=== PATIENT | female | born 1935 | race Caucasian/White ===

== ENCOUNTER 2018-01-24 21:49 | Emergency (ER) | payer MEDICARE, OTHER ==
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
[2018-01-24] MEDS ORDERED: Aspirin 325 MG Tab PO ONE (22:52)
[2018-01-24] MEDS: Aspirin 325 MG Tab PO ONE (22:58)
[2018-01-25 00:39] LABS: CHLORIDE,CL 105 mmol/L (98-107); SODIUM,NA 141 mmol/L (136-145)
[2018-01-25] MEDS ORDERED: Iopamidol 755 Mg/ML 100 ML Bottle IVPUSH STA (01:40)
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
== END 2018-01-25 02:21 | disposition home or self-care (01) ==
LOC: MW.ED 21:49
DX: S27.321A Contusion of lung, unilateral, initial encounter (principal); V89.2XXA Person injured in unspecified motor-vehicle accident, traffic, initial encounter
CPT/HCPCS: 36415; 71250; 71275; 74175; 80048; 93005; 99285; A9270; Q9967; 99284

== ENCOUNTER 2021-01-10 07:18 | Emergency (ER) | payer MEDICARE, OTHER ==
[2021-01-10] MEDS ORDERED: Sodium Chloride 0.9% 500 ML IV ONE (07:55)
[2021-01-10 08:23] LABS: BLOOD UREA NITROGEN,BUN 17 mg/dL (7.0-18.0); CARBON DIOXIDE,CO2 25.9 mmol/L (21.0-32.0); CHLORIDE,CL 105 mmol/L (98-107); GLUCOSE RANDOM 103 mg/dL (74-106); LIPASE 74 U/L (73-393); SODIUM,NA 141 mmol/L (136-145)
[2021-01-10] MEDS ORDERED: Iopamidol 755 MG/ML 500 ML Multipack Bottle IVPUSH STA (09:18)
--- NOTE | 2021-01-10 09:50 | EDM.PDOC ---
ED HPI GENERAL MEDICAL PROBLEM - General Chief Complaint: Abdominal Pain Stated Complaint: LEFT SIDE ABDOMINAL PAIN; BACK PAIN Time Seen by Provider: 01/10/21 07:34 Source of Information: Reports: Patient History Limitations: Reports: No Limitations - History of Present Illness INITIAL COMMENTS - FREE TEXT/NARRATIVE: Patient is a 85-year-old female who presents today for diffuse abdominal pain. States the pain has been present for the past few months. She has noticed the pain started after she took a fall a few months ago. She was in her garden and tried to jump on a shovel and hit her back. She has had recurrent back pain since then as well. Patient has her back pain has not changed is not bothering her much today. She says she has not had a bowel movement since December. She is still able tolerate p.o. no has no nausea or vomiting. Patient denies any other complaints. bilateral lower abdomen Pain Score (Numeric/FACES): 6 - Related Data Allergies Allergy/AdvReac Type Severity Reaction Status Date / Time No Known Allergies Allergy Verified 01/10/21 07:44 Home Meds: Home Meds . 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: Musculoskeletal History: Reports: None Neurological History: Reports: None Psychiatric History: Reports: None Endocrine/Metabolic History: Reports: None Hematologic History: Reports: None Immunologic History: Reports: None Oncologic (Cancer) History: Reports: None Dermatologic History: Reports: None - Infectious Disease History Infectious Disease History: Reports: None - Past Surgical History Head Surgeries/Procedures: Reports: None Social & Family History - Family History Family Medical History: No Pertinent Family History - Tobacco Use Tobacco Use Status *Q: Never Tobacco User Second Hand Smoke Exposure: No - Caffeine Use Caffeine Use: Reports: None - Recreational Drug Use Recreational Drug Use: No ED ROS GENERAL - Review of Systems Review Of Systems: See Below Constitutional: Reports: No Symptoms HEENT: Reports: No Symptoms Respiratory: Reports: No Symptoms Cardiovascular: Reports: No Symptoms Endocrine: Reports: No Symptoms GI/Abdominal: Reports: Abdominal Pain : Reports: No Symptoms Musculoskeletal: Reports: No Symptoms Skin: Reports: No Symptoms Neurological: Reports: No Symptoms Psychiatric: Reports: No Symptoms Hematologic/Lymphatic: Reports: No Symptoms Immunologic: Reports: No Symptoms ED EXAM, GI/ABD - Physical Exam Exam: See Below Exam Limited By: No Limitations General Appearance: Alert, WD/WN, No Apparent Distress Respiratory/Chest: No Respiratory Distress, Lungs Clear, Normal Breath Sounds Cardiovascular: Normal Peripheral Pulses, Regular Rate, Rhythm GI/Abdominal Exam: Normal Bowel Sounds, Soft, Non-Tender, Other (Guaiac negative) Back Exam: No: Paraspinal Tenderness, Vertebral Tenderness Neurological: Alert, Oriented Course - Vital Signs Last Recorded V/S: Last Vital Signs Temp 98.2 F 01/10/21 07:38 Pulse 80 01/10/21 10:12 Resp 18 01/10/21 10:12 BP 125/45 L 01/10/21 10:12 Pulse Ox 98 01/10/21 10:12 - Orders/Labs/Meds Orders: Active Orders 24 hr Category Date Time Status Guaiac [OCCULT BLOOD DIAGNOSTIC] [OP] Stat Lab 01/10/21 09:40 Ordered Labs: Laboratory Tests 01/10/21 01/10/21 01/10/21 Range/Units 07:45 07:45 08:05 WBC 4.23 (4.0-11.0) K/uL RBC 2.49 L (4.30-5.90) M/uL Hgb 8.6 L (12.0-16.0) g/dL Hct 26.2 L (36.0-46.0) % MCV 105.2 H (80.0-98.0) fL MCH 34.5 H (27.0-32.0) pg MCHC 32.8 (31.0-37.0) g/dL RDW Std Deviation 82.7 H (28.0-62.0) fl RDW Coeff of Kassandra 23 H (11.0-15.0) % Plt Count 444 H (150-400) K/uL MPV 10.70 (7.40-12.00) fL Neut % (Auto) 32.6 L (48.0-80.0) % Lymph % (Auto) 47.3 H (16.0-40.0) % Nye % (Auto) 19.4 H (0.0-15.0) % Eos % (Auto) 0.5 (0.0-7.0) % Baso % (Auto) 0.2 (0.0-1.5) % Neut # (Auto) 1.4 (1.4-5.7) K/uL Lymph # (Auto) 2.0 (0.6-2.4) K/uL Nye # (Auto) 0.8 (0.0-0.8) K/uL Eos # (Auto) 0.0 (0.0-0.7) K/uL Baso # (Auto) 0.0 (0.0-0.1) K/uL Nucleated RBC % 0.6 /100WBC Nucleated RBCs # 0 K/uL Sodium 141 (136-145) mmol/L Potassium 4.0 (3.5-5.1) mmol/L Chloride 105 (98-107) mmol/L Carbon Dioxide 25.9 (21.0-32.0) mmol/L BUN 17 (7.0-18.0) mg/dL Creatinine 0.6 (0.6-1.0) mg/dL Est Cr Clr Drug Dosing 54.22 mL/min Estimated GFR (MDRD) > 60.0 ml/min Glucose 103 (74-106) mg/dL Calcium 9.2 (8.5-10.1) mg/dL Phosphorus 3.8 (2.6-4.7) mg/dL Magnesium 2.0 (1.8-2.4) mg/dL Total Bilirubin 0.8 (0.2-1.0) mg/dL AST 17 (15-37) IU/L ALT 16 (14-63) IU/L Alkaline Phosphatase 97 (46-116) U/L Total Protein 7.1 (6.4-8.2) g/dL Albumin 4.0 (3.4-5.0) g/dL Globulin 3.1 (2.6-4.0) g/dL Albumin/Globulin Ratio 1.3 (0.9-1.6) Lipase 74 (73-393) U/L Urine Color YELLOW Urine Appearance CLEAR Urine pH 5.5 (5.0-8.0) Ur Specific Conway 1.025 (1.001-1.035) Urine Protein NEGATIVE (NEGATIVE) mg/dL Urine Glucose (UA) NEGATIVE (NEGATIVE) mg/dL Urine Ketones TRACE H (NEGATIVE) mg/dL Urine Occult Blood TRACE-INTACT H (NEGATIVE) Urine Nitrite NEGATIVE (NEGATIVE) Urine Bilirubin NEGATIVE (NEGATIVE) Urine Urobilinogen 1.0 (<2.0) EU/dL Ur Leukocyte Esterase SMALL H (NEGATIVE) Urine RBC 0-2 (0-2/HPF) Urine WBC 3-5 (0-5/HPF) Ur Epithelial Cells FEW (NONE-FEW) Urine Bacteria 1+ H (NEGATIVE) Urine Mucus LIGHT (NONE-MOD) Meds: Medications Discontinued Medications Generic Name Dose Route Start Last Admin Trade Name Iwona PRN Reason Stop Dose Admin Sodium Chloride 500 mls @ 500 mls/hr 01/10/21 07:55 01/10/21 08:03 Normal Saline IV 01/10/21 08:54 500 mls/hr .BOLUS ONE Administration Iopamidol 100 ml 01/10/21 09:18 01/10/21 09:19 Iopamidol 755 Mg/Ml 500 Ml Multipack Bottle IVPUSH 01/10/21 09:19 100 ml ONETIME STA Administration - Re-Assessments/Exams Free Text/Narrative Re-Assessment/Exam: 01/10/21 11:27 We were able to get the patient's lab from [place] and showed back in 2019 she had a hemoglobin of 11.3. Her hemoglobin today is 8.6-patient is not symptomatic we did a stool guaiac and the stool was brown and guaiac negative. Patient on exam looks well not pale not fatigue unclear if this is acute drop. We will send patient home with enema and we have informed her that if he has any does bleeding or other complaints please return to the ED immediately. Departure - Departure Time of Disposition: 11:27 Disposition: Home, Self-Care 01 Condition: Good Clinical Impression: Constipation - Discharge Information *PRESCRIPTION DRUG MONITORING PROGRAM REVIEWED*: Not Applicable *COPY OF PRESCRIPTION DRUG MONITORING REPORT IN PATIENT JOSE: Not Applicable Instructions: Constipation, Adult, [id number] Referrals: Shan Bustamante MD [Primary Care Provider] - Forms: ED Department Discharge Additional Instructions: The following information is given to patients seen in the emergency department who are being discharged to home. This information is to outline your options for follow-up care. We provide all patients seen in our emergency department with a follow-up referral. The need for follow-up, as well as the timing and circumstances, are variable depending upon the specifics of your emergency department visit. If you don't have a primary care physician on staff, we will provide you with a referral. We always advise you to contact your personal physician following an emergency department visit to inform them of the circumstance of the visit and for follow-up with them and/or the need for any referrals to a consulting specialist. The emergency department will also refer you to a specialist when appropriate. This referral assures that you have the opportunity for follow-up care with a specialist. All of these measure are taken in an effort to provide you with optimal care, which includes your follow-up. Under all circumstances we always encourage you to contact your private physician who remains a resource for coordinating your care. When calling for follow-up care, please make the office aware that this follow-up is from your recent emergency room visit. If for any reason you are refused follow-up, please contact the [facility] Emergency Department at and asked to speak to the emergency department charge nurse. Please follow up with your primary care physician. If you do not have a primary care physician, see below: [facility] [address] [place] [id number] My [facility] [address] [place] [address] You were seen today for abdominal pain which showed you have some constipation likely causing the pain. We also did imaging. Spine that shows some narrowing of your foramen but no fractures. You also had a drop in your hemoglobin that is now 8.6. You do not seem to be having any symptoms from this low hemoglobin. He did not have any blood in your stool we did the exam. We recommend you follow-up with your primary care physician to figure out why her hemoglobin is so low. If you have any other concerning signs or symptoms please return to the ED. Sepsis Event Note (ED) - Evaluation Sepsis Screening Result: No Definite Risk - Focused Exam Vital Signs: Vital Signs Temp Pulse Resp BP Pulse Ox 01/10/21 10:12 80 18 125/45 L 98 01/10/21 09:40 81 18 120/45 L 98 01/10/21 08:41 76 20 153/57 H 98 01/10/21 08:15 68 18 146/54 H 98 01/10/21 07:38 98.2 F 80 18 148/45 H 97 - My Orders Last 24 Hours: My Active Orders 01/10/21 09:40 Guaiac [OCCULT BLOOD DIAGNOSTIC] [OP] Stat - Assessment/Plan Last 24 Hours: My Active Orders 01/10/21 09:40 Guaiac [OCCULT BLOOD DIAGNOSTIC] [OP] Stat Plan: Patient is a 85-year-old female presents today for diffuse paulina pain. She has no abdominal tenderness on exam but states she has not had a bowel movement in the past month. Will obtain CT scan labs and reassess patient.
--- NOTE | 2021-01-10 10:08 | CT ---
INDICATION: Abdominal distention and low back pain. TECHNIQUE: CT abdomen and pelvis acquired with 100 cc Isovue 370 IV contrast. COMPARISON: January 25, 2018. FINDINGS: Lower chest: Unremarkable. Liver: Unremarkable. Normal in size and attenuation. No suspicious masses. Gallbladder and bile ducts: Unremarkable. No stones or inflammation. No biliary dilatation. Pancreas: Unremarkable. No mass or inflammation. Spleen: Unremarkable. Normal in size. No masses. Adrenal glands: Unremarkable. No nodules. Kidneys: Unremarkable. No suspicious masses, stones, or hydronephrosis. GI tract: There is moderate diffuse stool filled distention of the colon consistent with constipation. Unremarkable small bowel. Normal appendix. Vasculature: Aortic atherosclerosis without aneurysm. Mesenteric arteries are patent. Lymph nodes: No lymphadenopathy. Omentum/Peritoneum/Abdominal Wall: Unremarkable. No sign of mass or infiltration. No free air or significant free fluid. Pelvis: Unremarkable. Bones: Moderate multilevel degenerative spondylosis and scoliosis of the lumbar spine. IMPRESSION: 1. Constipation pattern in the colon. 2. Stable multilevel degenerative spondylosis in the lumbar spine. 3. No other acute or significant finding. Please note that all CT scans at this facility use dose modulation, iterative reconstruction, and/or weight-based dosing when appropriate to reduce radiation dose to as low as reasonably achievable. Dictated by Rickey Kirk MD @ 01/10/2021 10:06:[address] Rickey Kirk @ Jan 10 2021 10:06AM
--- NOTE | 2021-01-10 10:16 | CT ---
INDICATION: Abdominal distention. Low back pain. COMPARISON: None. TECHNIQUE: Noncontrast CT lumbar spine. FINDINGS: Mid lumbar curve convex to the right. In sagittal plane normal vertebral body alignment. No fractures. No vertebral body loss of height. No spondylolisthesis. T9-10 T10-11 T11-12: No spinal canal or neural foraminal narrowing. T12-L1: Disc generation. No narrowing of spinal canal. No neural foraminal narrowing. Mild facet arthropathy. L1-2: Disc degeneration diffuse disc bulge. Mild vacuum disc. No narrowing of spinal canal. No neural foraminal narrowing. Mild facet arthropathy. L2-3: Disc degeneration diffuse disc bulge eccentric to the left. Combined of facet arthropathy, there is mild narrowing of spinal canal. Mild narrowing of the left neural foramen. No narrowing of the right neural foramen. Mild facet arthropathy. L3-4: Disc degeneration and loss of disc height. Diffuse disc bulge eccentric to the left. Combined facet arthropathy, there is moderate narrowing of spinal canal. Mild narrowing of bilateral foramina. Mild facet arthropathy. L4-5: Disc degeneration posterior disc bulge. Combined with ligamentum flavum facet hypertrophy, there is moderate severe narrowing of spinal canal. Mild to moderate narrowing of bilateral foramina. Mild facet arthropathy. L5-S1: Posterior disc bulge. No narrowing of spinal canal. No impingement of the traversing S1 nerve roots. No neural foraminal narrowing. Mild facet arthropathy. Degenerative changes of the SI joints. No presacral edema inflammation. Vascular calcifications. IMPRESSION: 1. Mild lumbar curve convex to the right. 2. In the sagittal plane, normal alignment. No fractures. 3. At L2-3, mild narrowing of the spinal canal and left neural foramina 4. At L3-4, moderate narrowing of the spinal canal. Mild narrowing of the bilateral neural foramina 5. At L4-5, moderate severe narrowing of spinal canal. Mild to moderate narrowing of the bilateral foramina 6. Lumbar spondylosis Please note that all CT scans at this facility use dose modulation, iterative reconstruction, and/or weight-based dosing when appropriate to reduce radiation dose to as low as reasonably achievable. Dictated by Damon Jennings MD @ 01/10/2021 10:16:[address] Damon Jennings @ Jan 10 2021 10:16AM
== END 2021-01-10 12:00 | disposition home or self-care (01) ==
LOC: MW.ED 07:18
DX: K59.00 Constipation, unspecified (principal)
CPT/HCPCS: 36415; 74177; 80053; 81001; 83690; 83735; 84100; 85025; 99284; J7030; Q9967; 72131-26

== ENCOUNTER 2023-06-06 19:56 | Inpatient (IN) | payer MEDICARE, OTHER ==
[2023-06-06] MEDS ORDERED: Dexamethasone 10 MG/ML SDV IM ONE (20:15)
[2023-06-06] MEDS ORDERED: Sodium Chloride 0.9% 10 ML Syringe FLUSH PRN (20:16)
[2023-06-06] MEDS ORDERED: Sodium Chloride 0.9% 2.5 ML Syringe FLUSH PRN (20:16)
[2023-06-06] MEDS ORDERED: Sodium Chloride 0.9% 1,000 ML IV ONE (20:20)
[2023-06-06 20:36] LABS: HEMATOCRIT 20.4 % (37.0-47.0); HEMOGLOBIN 6.8 g/dL (12.0-16.0); MEAN CORPUSCULAR HEMOGLOBIN 32.7 pg (28.0-32.0); MEAN CORPUSCULAR HGB CONC 33.3 g/dL (32.0-36.0); MEAN CORPUSCULAR VOLUME 98.1 fL (83.0-99.0); MEAN PLATELET VOLUME 11.7 fL (9.4-12.3); NRBC ABSOLUTE 0.07 K/uL (0.00-0.02); NRBC PERCENT 0.4 /100WBC (0.0-0.2); PLATELET COUNT,PLT 320 K/uL (150-400); RED BLOOD CELL COUNT 2.08 M/uL (4.10-5.30); WHITE BLOOD CELL COUNT,WBC 16.92 K/uL (3.9-11.3)
[2023-06-06 21:05] LABS: A/G RATIO 1.3 (0.9-1.6); ALBUMIN 3.8 g/dL (3.4-5.0); BILIRUBIN TOTAL 1.6 mg/dL (0.2-1.0); CALCIUM 8.9 mg/dL (8.5-10.1); CREATININE 0.9 mg/dL (0.6-1.0); EST CRCL DRUG DOSING (CG) 35.74 mL/min; POTASSIUM,K 3.8 mmol/L (3.5-5.1); PROTEIN TOTAL,TP 6.7 g/dL (6.4-8.2)
[2023-06-06] MEDS ORDERED: Azithromycin 500 MG in Sodium Chloride 0.9% 250 ML IV SCH (21:30)
[2023-06-06] MEDS ORDERED: cefTRIAXone 1 GM in Sodium Chloride 0.9% 50 ML IV SCH (21:30)
[2023-06-06 21:46] LABS: EOSINOPHILS ABSOLUTE MAN 0.17 K/uL (0.00-0.45); EOSINOPHILS PERCENT MAN 1 % (0-6); LYMPHOCYTES ABSOLUTE MAN 0.68 K/uL (1.00-4.80); LYMPHOCYTES PERCENT MAN 4 % (24-44); MONOCYTES ABSOLUTE MAN 2.54 K/uL (0.00-0.80); MONOCYTES PERCENT MAN 15 % (0-8); SEG NEUTROPHILS ABSOLUTE MAN 13.54 K/uL (1.80-7.70); SEG NEUTROPHILS PERCENT MAN 80 % (41-71)
[2023-06-06 21:48] LABS: ANISOCYTOSIS 2+ MODERATE; POIKILOCYTOSIS 1+ SLIGHT; SCHISTOCYTES 1+ SLIGHT; TARGET CELLS 1+ SLIGHT
[2023-06-06 21:49] LABS: ELLIPTOCYTES 1+ SLIGHT; MICROCYTOSIS 1+ SLIGHT; SPHEROCYTES 1+ SLIGHT; TEARDROP CELLS 1+ SLIGHT
[2023-06-06 22:42] LABS: CORONAVIRUS COVID-19 NAA POSITIVE (NEGATIVE); INFLUENZA A NAA NEGATIVE (NEGATIVE); INFLUENZA B NAA NEGATIVE (NEGATIVE)
[2023-06-06] MEDS ORDERED: REMDESIVIR 200 MG in Sodium Chloride 0.9% 250 ML IV ONE (22:50)
[2023-06-06] MEDS ORDERED: Iopamidol 755 Mg/ML 100 ML Bottle IVPUSH ONE (23:11)
[2023-06-07 06:40] LABS: BASOPHILS ABSOLUTE AUTO 0.02 K/uL (0.00-0.20); BASOPHILS PERCENT AUTO 0.1 % (0.0-1.0); HEMATOCRIT 22.4 % (37.0-47.0); HEMOGLOBIN 7.7 g/dL (12.0-16.0); IMMATURE GRAN ABSOLUTE AUTO 0.19 K/uL (0.00-0.05); IMMATURE GRAN PERCENT AUTO 0.9 % (0.0-0.4); LYMPHOCYTES ABSOLUTE AUTO 1.09 K/uL (1.00-4.80); MEAN CORPUSCULAR HEMOGLOBIN 32.2 pg (28.0-32.0); MEAN CORPUSCULAR HGB CONC 34.4 g/dL (32.0-36.0); MEAN CORPUSCULAR VOLUME 93.7 fL (83.0-99.0); MONOCYTES ABSOLUTE AUTO 0.91 K/uL (0.00-0.80); MONOCYTES PERCENT AUTO 4.2 % (0.0-8.0); NEUTROPHILS ABSOLUTE AUTO 19.48 K/uL (1.80-7.70); NEUTROPHILS PERCENT AUTO 89.8 % (41.0-71.0); NRBC ABSOLUTE 0.05 K/uL (0.00-0.02); NRBC PERCENT 0.2 /100WBC (0.0-0.2); PLATELET COUNT,PLT 264 K/uL (150-400); RED BLOOD CELL COUNT 2.39 M/uL (4.10-5.30); WHITE BLOOD CELL COUNT,WBC 21.69 K/uL (3.9-11.3)
[2023-06-07 07:04] LABS: A/G RATIO 1.1 (0.9-1.6); ALBUMIN 3.1 g/dL (3.4-5.0); BILIRUBIN TOTAL 1.3 mg/dL (0.2-1.0); CALCIUM 8.2 mg/dL (8.5-10.1); CARBON DIOXIDE,CO2 25.7 mmol/L (21.0-32.0); CREATININE 0.7 mg/dL (0.6-1.0); EST CRCL DRUG DOSING (CG) 45.95 mL/min
[2023-06-07] MEDS ORDERED: Albuterol/Ipratropium 3.0-0.5 MG/3 ML Neb Soln NEB PRN (07:34)
[2023-06-07] MEDS ORDERED: Ondansetron 4 MG/2 ML SDV IVPUSH PRN (07:34)
[2023-06-07] MEDS: Enoxaparin 40 MG/0.4 ML Syringe SUBCUT SCH (10:10)
[2023-06-07] MEDS: Acetaminophen 325 MG Tab PO PRN ×2 (14:39→22:15)
[2023-06-07] MEDS: cefTRIAXone 1 GM in Sodium Chloride 0.9% 50 ML IV SCH (22:24)
[2023-06-07] MEDS: Dexamethasone 4 MG Tab PO SCH (23:06)
[2023-06-07] MEDS: Azithromycin 500 MG in Sodium Chloride 0.9% 250 ML IV SCH (23:07)
[2023-06-07 23:31] LABS: ALBUMIN 3.2 g/dL (3.4-5.0); CALCIUM 8.6 mg/dL (8.5-10.1); CARBON DIOXIDE,CO2 25.8 mmol/L (21.0-32.0); CREATININE 0.9 mg/dL (0.6-1.0); EST CRCL DRUG DOSING (CG) 35.74 mL/min; POTASSIUM,K 4.8 mmol/L (3.5-5.1); PROTEIN TOTAL,TP 6.3 g/dL (6.4-8.2)
[2023-06-07 23:32] LABS: BILIRUBIN DIRECT 0.3 mg/dL (0.0-0.5); BILIRUBIN TOTAL 0.9 mg/dL (0.2-1.0)
[2023-06-08 06:14] LABS: HEMATOCRIT 20.4 % (37.0-47.0); HEMOGLOBIN 6.9 g/dL (12.0-16.0); IMMATURE GRAN ABSOLUTE AUTO 0.09 K/uL (0.00-0.05); IMMATURE GRAN PERCENT AUTO 0.9 % (0.0-0.4); LYMPHOCYTES ABSOLUTE AUTO 0.92 K/uL (1.00-4.80); LYMPHOCYTES PERCENT AUTO 8.7 % (24.0-44.0); MEAN CORPUSCULAR HEMOGLOBIN 31.8 pg (28.0-32.0); MEAN CORPUSCULAR HGB CONC 33.8 g/dL (32.0-36.0); MEAN PLATELET VOLUME 12.5 fL (9.4-12.3); MONOCYTES ABSOLUTE AUTO 0.36 K/uL (0.00-0.80); MONOCYTES PERCENT AUTO 3.4 % (0.0-8.0); NEUTROPHILS ABSOLUTE AUTO 9.19 K/uL (1.80-7.70); NRBC ABSOLUTE 0.03 K/uL (0.00-0.02); NRBC PERCENT 0.3 /100WBC (0.0-0.2); PLATELET COUNT,PLT 311 K/uL (150-400); RED BLOOD CELL COUNT 2.17 M/uL (4.10-5.30); WHITE BLOOD CELL COUNT,WBC 10.56 K/uL (3.9-11.3)
[2023-06-08 06:40] LABS: BILIRUBIN DIRECT 0.3 mg/dL (0.0-0.5); BILIRUBIN TOTAL 0.8 mg/dL (0.2-1.0); CALCIUM 8.5 mg/dL (8.5-10.1); CARBON DIOXIDE,CO2 25.2 mmol/L (21.0-32.0); CREATININE 0.8 mg/dL (0.6-1.0); EST CRCL DRUG DOSING (CG) 40.21 mL/min; POTASSIUM,K 4.4 mmol/L (3.5-5.1)
[2023-06-08] MEDS: Enoxaparin 40 MG/0.4 ML Syringe SUBCUT SCH (09:39)
[2023-06-08] MEDS: Dexamethasone 4 MG Tab PO SCH (09:40)
[2023-06-08] MEDS: REMDESIVIR 100 MG in Sodium Chloride 0.9% 100 ML IV SCH (09:40)
[2023-06-08] MEDS: cefTRIAXone 1 GM in Sodium Chloride 0.9% 50 ML IV SCH (21:49)
[2023-06-08] MEDS: Azithromycin 500 MG in Sodium Chloride 0.9% 250 ML IV SCH (22:32)
[2023-06-08] MEDS: Acetaminophen 325 MG Tab PO PRN (23:49)
[2023-06-09 06:51] LABS: HEMATOCRIT 24.7 % (37.0-47.0); HEMOGLOBIN 8.3 g/dL (12.0-16.0); IMMATURE GRAN ABSOLUTE AUTO 0.03 K/uL (0.00-0.05); IMMATURE GRAN PERCENT AUTO 0.7 % (0.0-0.4); LYMPHOCYTES ABSOLUTE AUTO 0.97 K/uL (1.00-4.80); MEAN CORPUSCULAR HEMOGLOBIN 31.1 pg (28.0-32.0); MEAN CORPUSCULAR HGB CONC 33.6 g/dL (32.0-36.0); MEAN CORPUSCULAR VOLUME 92.5 fL (83.0-99.0); MEAN PLATELET VOLUME 12.1 fL (9.4-12.3); MONOCYTES ABSOLUTE AUTO 0.25 K/uL (0.00-0.80); MONOCYTES PERCENT AUTO 5.9 % (0.0-8.0); NEUTROPHILS ABSOLUTE AUTO 2.96 K/uL (1.80-7.70); NEUTROPHILS PERCENT AUTO 70.4 % (41.0-71.0); NRBC ABSOLUTE 0.08 K/uL (0.00-0.02); NRBC PERCENT 1.9 /100WBC (0.0-0.2); PLATELET COUNT,PLT 278 K/uL (150-400); RED BLOOD CELL COUNT 2.67 M/uL (4.10-5.30); WHITE BLOOD CELL COUNT,WBC 4.21 K/uL (3.9-11.3)
[2023-06-09] MEDS: Enoxaparin 40 MG/0.4 ML Syringe SUBCUT SCH (06:51)
[2023-06-09 07:41] LABS: A/G RATIO 1.1 (0.9-1.6); ALBUMIN 3.1 g/dL (3.4-5.0); BILIRUBIN DIRECT 0.3 mg/dL (0.0-0.5); BILIRUBIN TOTAL 0.8 mg/dL (0.2-1.0); CALCIUM 8.7 mg/dL (8.5-10.1); CARBON DIOXIDE,CO2 23.5 mmol/L (21.0-32.0); CREATININE 0.8 mg/dL (0.6-1.0); EST CRCL DRUG DOSING (CG) 40.21 mL/min; POTASSIUM,K 4.5 mmol/L (3.5-5.1); PROTEIN TOTAL,TP 5.9 g/dL (6.4-8.2)
[2023-06-09] MEDS: Dexamethasone 4 MG Tab PO SCH (08:15)
[2023-06-09] MEDS: REMDESIVIR 100 MG in Sodium Chloride 0.9% 100 ML IV SCH (10:20)
== END 2023-06-09 13:15 | disposition home or self-care (01) | DRG 177 ==
LOC: MW.ED 19:56 → MW.MS 23:21
PROVIDERS: ADMIT Internal Medicine; ATTEND Internal Medicine
PROC: 30233N1 Transfusion of Nonautologous Red Blood Cells into Peripheral Vein, Percutaneous Approach (ICD-10-PCS; principal; 2023-06-06)
PROC: XW033E5 Introduction of Remdesivir Anti-infective into Peripheral Vein, Percutaneous Approach, New Technology Group 5 (ICD-10-PCS; 2023-06-06)
PROC: 3E0333Z Introduction of Anti-inflammatory into Peripheral Vein, Percutaneous Approach (ICD-10-PCS; 2023-06-06)
PROC: 8E0ZXY6 Isolation (ICD-10-PCS; 2023-06-06)
DX: U07.1 COVID-19 (principal); J12.82 Pneumonia due to coronavirus disease 2019; J96.01 Acute respiratory failure with hypoxia; R00.0 Tachycardia, unspecified; I27.20 Pulmonary hypertension, unspecified; F03.90 Unspecified dementia, unspecified severity, without behavioral disturbance, psychotic disturbance, mood disturbance, and anxiety; R09.02 Hypoxemia; D46.9 Myelodysplastic syndrome, unspecified; F03.A0 Unspecified dementia, mild, without behavioral disturbance, psychotic disturbance, mood disturbance, and anxiety; Z86.2 Personal history of diseases of the blood and blood-forming organs and certain disorders involving the immune mechanism; M81.0 Age-related osteoporosis without current pathological fracture; D64.89 Other specified anemias
CPT/HCPCS: 0240U; 36415; 36430; 71275; 80053; 82248; 83605; 84484; 85025; 86850; 86900; 86901; 86920; 87040; 93005; 96365; 96367; 96372; 99291; 93010; 99222; 99231; 99238; A9270-GY; J0248; J0456; J0696; J1100; J1650; J3490; J7030; J7050; J8540; P9016; Q9967

== ENCOUNTER 2024-06-14 09:58 | Emergency (ER) | payer MEDICARE, OTHER ==
[2024-06-14] MEDS ORDERED: Sodium Chloride 0.9% 2.5 ML Syringe FLUSH PRN (10:13)
[2024-06-14] MEDS ORDERED: Sodium Chloride 0.9% 10 ML Syringe FLUSH PRN (10:13)
[2024-06-14 10:39] LABS: HEMATOCRIT 22.6 % (37.0-47.0); HEMOGLOBIN 7.4 g/dL (12.0-16.0); MEAN CORPUSCULAR HEMOGLOBIN 28.8 pg (28.0-32.0); MEAN CORPUSCULAR HGB CONC 32.7 g/dL (32.0-36.0); MEAN CORPUSCULAR VOLUME 87.9 fL (83.0-99.0); MEAN PLATELET VOLUME 11.2 fL (9.4-12.3); NRBC ABSOLUTE 0.05 K/uL (0.00-0.02); NRBC PERCENT 1.1 /100WBC (0.0-0.2); PLATELET COUNT,PLT 317 K/uL (150-400); RED BLOOD CELL COUNT 2.57 M/uL (4.10-5.30)
[2024-06-14 11:02] LABS: A/G RATIO 1.2 (0.9-1.6); ALANINE AMINOTRANSFERASE,ALT 41 IU/L (14-63); ALBUMIN 3.5 g/dL (3.4-5.0); ALKALINE PHOSPHATASE 154 U/L (46-116); ASPARTATE AMNIOTRANSFERASE,AST 31 IU/L (15-37); BILIRUBIN TOTAL 1.2 mg/dL (0.2-1.0); BLOOD UREA NITROGEN,BUN 9 mg/dL (7.0-18.0); CALCIUM 8.9 mg/dL (8.5-10.1); CARBON DIOXIDE,CO2 26.5 mmol/L (21.0-32.0); CHLORIDE,CL 105 mmol/L (98-107); CREATININE 0.7 mg/dL (0.6-1.0); GLUCOSE RANDOM 132 mg/dL (74-106); LIPASE 27 U/L (16-77); MAGNESIUM 1.6 mg/dL (1.8-2.4); POTASSIUM,K 4.5 mmol/L (3.5-5.1); PROTEIN TOTAL,TP 6.3 g/dL (6.4-8.2); SODIUM,NA 137 mmol/L (136-145)
[2024-06-14 11:19] LABS: ESTIMATED GFR 83 mL/min (>60)
[2024-06-14 11:53] LABS: LYMPHOCYTES PERCENT MAN 59 % (24-44); MONOCYTES ABSOLUTE MAN 0.44 K/uL (0.00-0.80); MONOCYTES PERCENT MAN 10 % (0-8); SEG NEUTROPHILS ABSOLUTE MAN 1.36 K/uL (1.80-7.70); SEG NEUTROPHILS PERCENT MAN 31 % (41-71)
[2024-06-14] MEDS: Iopamidol 755 MG/ML 500 ML Multipack Bottle IVPUSH STA (13:38)
[2024-06-14] MEDS: Acetaminophen/Codeine 300-30 MG Tab PO ONE (14:15)
[2024-06-14 16:10] LABS: APPEARANCE,URINE CLEAR; BILIRUBIN,URINE NEGATIVE (NEGATIVE); COLOR,URINE YELLOW; GLUCOSE,URINE NEGATIVE (NEGATIVE); KETONES,URINE NEGATIVE (NEGATIVE); LEUKOCYTE ESTERASE,URINE NEGATIVE (NEGATIVE); NITRITE,URINE NEGATIVE (NEGATIVE); OCCULT BLOOD,URINE NEGATIVE (NEGATIVE); PROTEIN,URINE NEGATIVE (NEGATIVE)
== END 2024-06-14 16:43 | disposition home or self-care (01) ==
LOC: MW.ED 09:58
DX: R10.32 Left lower quadrant pain (principal); D64.89 Other specified anemias; Z91.013 Allergy to seafood; Z79.899 Other long term (current) drug therapy; Z75.8 Other problems related to medical facilities and other health care
CPT/HCPCS: 36415; 36430; 71045; 74177; 76705; 80053; 81003; 83690; 83735; 85025; 86850; 86900; 86901; 86920; 87428; 93005; 99284; A9270; P9016; Q9967